=== PATIENT | female | born 1960 | race Caucasian/White ===

== ENCOUNTER 2019-02-06 00:17 | Day surgery (SDC) | payer OTHER ==
[~2019-02-06] VITALS: Ht 182.9 cm; Wt 86.2 kg
[~2019-02-06 00:17] MED LIST: BIFI4CAP2 PO; CALC-1 PO; HYDR-2966 PO; LORA10CA3 PO; LOSA100T75 PO; PEDI1TAB4 PO
[2019-02-06 11:49] VITALS: BP 153/94
[2019-02-06] MEDS ORDERED: NORMOSOL R SOLN(*) 1000 ML BAG 1,000 ML IV PRN (12:25)
[2019-02-06] MEDS ORDERED: LIDOCAINE/SOD BICARB 8.4% SYR ID ONE (12:25)
[2019-02-06] MEDS ORDERED: PROPOFOL EMUL(*) 10MG/ML 20 ML 60 ML ONE (13:29)
[2019-02-06 14:20] VITALS: BP 126/78
[2019-02-06 14:48] VITALS: BP 141/85
[2019-02-06 14:53] VITALS: BP 144/99
[2019-02-06 14:55] VITALS: BP 140/95
== END 2019-02-06 15:00 | disposition home or self-care (01) ==
LOC: OR 00:17
PROVIDERS: ATTEND Family Medicine
DX: Z12.11 Encounter for screening for malignant neoplasm of colon (principal); D12.2 Benign neoplasm of ascending colon
CPT/HCPCS: 00811; 45380; 45385; 88305; J2704